=== PATIENT | female | born 1950 | race Hispanic/Latino ===

== ENCOUNTER 2017-08-18 06:32 | Day surgery (SDC) | payer MEDICARE, MEDICAID ==
[2015-06-07 07:16] VITALS: BMI 27.1
[2017-08-18 07:03] VITALS: O2SAT 99
[2017-08-18] MEDS ORDERED: Lactated Ringer's 500 ML IV SCH (08:00)
--- NOTE | 2017-08-18 08:01 | CP.SDSHP ---
Same Day Surgery H & P - History Proposed Procedure: COLONSCOPY Pre-Op Diagnosis: HX. OF COLON POLYPS - Previous Medical/Surgical History Endocrine/Metabolic: Thyroid Disease Misc: Other Pain: 2.Mild Pain - Allergies Allergies: Allergies No Known Allergies Allergy (Verified 06/07/15 07:13) - Physical Exam General Appearance: N Vital Signs: Vital Signs 08/18/17 06:56 Temperature 97.7 F Pulse Rate 73 Respiratory 19 Rate Blood Pressure 139/80 O2 Sat by Pulse 99 Oximetry Mental Status: Alert & Oriented x3 Neuro: WNL Heart: WNL Lungs: WNL GI: Other - {Optional Preform as Required} Breast: WNL Abdomen: Other Rectal: Other Integument: WNL : WNL Ortho: Other ENT: WNL - Impression Pt. Evaluated Today:Candidate for Anesthesia & Procedure: Yes - Date & Time Time: 08:01 Short Stay Discharge - Short Stay Discharge Admitting Diagnosis/Reason for Visit: HISTORY OF COLON POLYP Disposition: HOME/ ROUTINE
[2017-08-18] MEDS ORDERED: Propofol 10 mg/ml Inj (20 ML) ONE (08:02)
[2017-08-18] MEDS ORDERED: Glucagon Recombinant 1 mg Inj ONE (08:11)
[2017-08-18] MEDS ORDERED: Belladonna-Phenobarbital PO STA (08:23)
[2017-08-18 09:49] VITALS: TEMP 97.4
[2017-08-18 09:56] VITALS: BP 122/68; PULSE 74; RESP 18
== END 2017-08-18 09:45 | disposition home or self-care (01) ==
LOC: C.ENDO 06:32
PROVIDERS: ATTEND Specialist
DX: K58.9 Irritable bowel syndrome, unspecified (principal); Z86.010 Personal history of colon polyps; K64.8 Other hemorrhoids
CPT/HCPCS: 45380; 88305; J1610; J2704; J3010; J7040; J7120